=== PATIENT | female | born 1965 | race Two or more races ===

== ENCOUNTER → 2018-06-02 | Outpatient (CLI) | payer OTHER ==
[~2018-06-02] MED LIST: ATORVASTATIN CA40 MG PO; LISINOPRIL20 MG PO
== END | disposition home or self-care (01) ==
LOC: RAD 501 08:42 → RAD 08:42
DX: N20.0 Calculus of kidney (principal)

== ENCOUNTER 2018-11-17 08:29 | Outpatient (CLI) | payer OTHER | END 2018-11-17 08:41 | disposition home or self-care (01) | LOC: RAD 08:29 | DX: N30.00 Acute cystitis without hematuria (principal) ==

== ENCOUNTER → 2018-11-22 10:28 | Outpatient (CLI) | payer OTHER | END | disposition home or self-care (01) | LOC: LAB 10:28 | DX: D62 Acute posthemorrhagic anemia (principal) ==

== ENCOUNTER 2018-12-07 06:25 | Inpatient (IN) | payer OTHER | END 2018-12-09 12:31 | disposition home or self-care (01) | DRG 661 | LOC: CIR.AMB 06:25 → O/R 14:26 → SURH 14:26 → CIR.AMB 14:45 → SURH 14:57 | PROVIDERS: ADMIT Urology | PROC: 0TC78ZZ Extirpation of Matter from Left Ureter, Via Natural or Artificial Opening Endoscopic (ICD-10-PCS; 2018-12-07) | PROC: BT1FZZZ Fluoroscopy of Left Kidney, Ureter and Bladder (ICD-10-PCS; 2018-12-07) | PROC: 0TC18ZZ Extirpation of Matter from Left Kidney, Via Natural or Artificial Opening Endoscopic (ICD-10-PCS; principal; 2018-12-07 07:00) | DX: N20.0 Calculus of kidney (principal); N20.1 Calculus of ureter ==

== ENCOUNTER 2019-01-04 06:32 | Outpatient (CLI) | payer OTHER | END 2019-01-04 06:40 | disposition home or self-care (01) | LOC: LAB 06:32 | DX: N20.0 Calculus of kidney (principal) ==

== ENCOUNTER 2019-01-04 07:42 | Outpatient (CLI) | payer OTHER | END 2019-01-04 07:44 | disposition home or self-care (01) | LOC: RAD 07:42 | DX: N20.0 Calculus of kidney (principal) ==

== ENCOUNTER → 2019-07-18 | Outpatient (CLI) | payer OTHER | END | disposition home or self-care (01) | LOC: SONOGRAMA 12:36 | DX: N20.0 Calculus of kidney (principal) ==

== ENCOUNTER → 2020-11-25 | Outpatient (CLI) | payer OTHER | END | disposition home or self-care (01) | LOC: RAD 08:46 | PROVIDERS: ATTEND Urology | DX: N20.0 Calculus of kidney (principal) ==